=== PATIENT | female | born 1990 | race Caucasian/White ===

== ENCOUNTER 2016-11-02 00:54 | Emergency (ER) | payer SELFPAY ==
[~2016-11-02] VITALS: Ht 160 cm; Wt 69.6 kg
[~2016-11-02 00:54] MED LIST: AMOX500T PO; CORTI10A AD; HYDR-3533 PO; IBUP800T23 PO; PENI500T PO; ULTR50TA PO; Z.0.BCPILL PO
[2016-11-02] MEDS ORDERED: IBUP800T23 PO (01:04)
[2016-11-02] MEDS ORDERED: TRAM50TA PO (01:04)
[2016-11-02] MEDS ORDERED: ETON1IMP I-DERMAL (01:04)
[2016-11-02 01:05] VITALS: BP 104/66; PULSE 97; RESP 16; TEMP 97.4; O2SAT 100
[2016-11-02] MEDS ORDERED: KETOROLAC TROMETHAMINE 30 MG/ML (IVP) VIAL IV PUSH ONE (01:15)
[2016-11-02] MEDS ORDERED: ONDANSETRON HCL 4 MG/2 ML VIAL IV PUSH ONE (01:15)
[2016-11-02] MEDS ORDERED: SODIUM CHLOR 0.9% 1000 ML INJ 1,000 ML IV ONE (01:30)
[2016-11-02 01:37] LABS: AUTOMATED NEUTROPHIL # 5.4 TH/MM3 (1.8-7.7); BASOPHIL % 0.4 % (0.0-2.0); EOSINOPHIL # 0.1 TH/MM3 (0-0.4); EOSINOPHIL % 1.3 % (0.0-4.0); HEMATOCRIT 31.4 % (35.0-46.0); LYMPH % 30.8 % (9.0-44.0); LYMPHOCYTE # 2.8 TH/MM3 (1.0-4.8); MEAN CORPUSCULAR HEMOGLOBIN 21.8 PG (27.0-34.0); MEAN CORPUSCULAR HGB CONC 31.5 % (32.0-36.0); MONO % 8.5 % (0.0-8.0); PLATELET COUNT 429 TH/MM3 (150-450); RED BLOOD COUNT 4.55 MIL/MM3 (4.00-5.30); RED CELL DISTRIBUTION WIDTH 15.4 % (11.6-17.2); WHITE BLOOD COUNT 9.1 TH/MM3 (4.0-11.0)
[2016-11-02 01:42] LABS: POTASSIUM 3.6 MEQ/L (3.5-5.1)
[2016-11-02 01:45] LABS: BICARBONATE 29.2 MEQ/L (21.0-32.0)
[2016-11-02 01:47] LABS: HEMO FLAGS AUTO DIFF
--- NOTE | 2016-11-02 01:51 | PD ---
HPI Chief Complaint: Abdominal Pain Time Seen by Provider: 01:12 Travel History International Travel<30 days: No Contact w/Intl Traveler<30days: No Traveled to known affect area: No History of Present Illness HPI 26-year-old female presents to the emergency department by private transportation for one day complaint of abdominal pain. Patient states pain is related to the periumbilical area and may be due to issues with her umbilical hernia. Patient states at time of 3 years ago she developed an umbilical hernia . Patient states that since that time she's had intermittent problems with pain associated with the umbilical hernia. Patient states she is frequently seen in the emergency department for same complaint. Patient states due to insurance issues she has not been able to have the hernia repaired by surgeon. Patient recently moved here from [place] to [place] although has been seen in the [place] in the past before for the same complaint. Patient complains of nausea and an episode of vomiting earlier this evening after eating a burger at work. Patient reports chronic constipation issues and asked bowel movements approximately 2 days ago but has had flatus. Patient states that due to recurrent pain this evening she was sent home from work. Due to persistent complaint presents now for further evaluation. Patient does not note any protrusion of her umbilical hernia. Patient states that because of the pain associated with her hernia, she cannot reduce it on her own. Patient reports she has been prescribed ibuprofen and tramadol for pain associated with her umbilical hernia but it provides no relief. Patient denies . Patient's had no fever or chills. PFSH Past Medical History Narrative Medical Anemia anxiety depression and umbilical hernia GERD migraines pneumonia tubal ligation and tonsillectomy; tobacco use; nursing notes reviewed Hx Anticoagulant Therapy: No Anemia: Yes (IRON DEFICIENCY) Anxiety: Yes Depression: Yes Cardiovascular Problems: No Chemotherapy: No Cerebrovascular Accident: No Diabetes: No Diminished Hearing: No Gastrointestinal Disorders: Yes (UMBILICAL HERNIA SINCE 2012) GERD: Yes Medical other: Yes (CHICKEN POX) Respiratory: No Immunizations Current: Yes Migraines: Yes Pneumonia: Yes (AGE 8) Tetanus Vaccination: > 5 Years ?: Not LMP: 09/26/16 : 3 Para: 3 Tubal Ligation: Yes Past Surgical History Section: Yes (X 3) Tonsillectomy: Yes Social History Alcohol Use: No Tobacco Use: Yes (1/2 PPD) Substance Use: No Allergies-Medications (Allergen,Severity, Reaction): Coded Allergies: No Known Allergies (Unverified , 11/02/16) Reported Meds & Prescriptions Reported Meds & Active Scripts Active Reported Nexplanon Implant (Etonogestrel Implant) 68 Mg Imp 68 Mg I-DERMAL ONCE Ibuprofen 800 Mg Tab 800 Mg PO Q8H PRN Tramadol (Tramadol HCl) 50 Mg Tab 50 Mg PO Q6H PRN Review of Systems Except as stated in HPI: all other systems reviewed are Neg General / Constitutional: No: Fever, Chills HENT: No: Congestion Cardiovascular: No: Chest Pain or Discomfort Respiratory: No: Cough, Shortness of Breath, Wheezing Gastrointestinal: Positive: Nausea, Vomiting (x1), Abdominal Pain, No: Changes in Bowel Habits, Loss of Appetite Genitourinary: No: Flank Pain Musculoskeletal: No: Pain Skin: No Rash Neurologic: No: Weakness Psychiatric: No: Anxiety Hematologic/Lymphatic: No: Lymph Node Enlargement Physical Exam Narrative GENERAL: Well-developed well-nourished female in no acute distress no respiratory distress SKIN: Warm and dry. HEAD: Normocephalic. EYES: No scleral icterus. No injection or drainage. NECK: Supple, trachea midline. No JVD or lymphadenopathy. CARDIOVASCULAR: Regular rate and rhythm without murmurs, gallops, or rubs. RESPIRATORY: Breath sounds equal bilaterally. No accessory muscle use. GASTROINTESTINAL: Abdomen soft, periumbilical tenderness without palpable mass and no palpable hernia, nondistended. MUSCULOSKELETAL: No cyanosis, or edema. BACK: Nontender without obvious deformity. No CVA tenderness. Data Data Last Documented VS Vital Signs Date Time Temp Pulse Resp B/P Pulse Ox O2 Delivery O2 Flow Rate FiO2 11/02/16 01:05 97.4 97 16 104/66 100 Orders Complete Blood Count With Diff (11/02/16 01:12) Basic Metabolic Panel (Bmp) (11/02/16 01:12) Ed Urine Pregnancytest Poc (11/02/16 01:12) Ketorolac Inj (Toradol Inj) (11/02/16 01:15) Urinalysis - C+S If Indicated (11/02/16 01:12) Ondansetron Inj (Zofran Inj) (11/02/16 01:15) Sodium Chlor 0.9% 1000 Ml Inj (Ns 1000 M (11/02/16 01:30) Abdomen, Flat & Upright (11/02/16 ) Mandatory Outpatient Referral (11/02/16 02:39) Acetamin-Hydrocod 325-7.5 Mg ([place] 7.5 (11/02/16 02:45) Labs Laboratory Tests Test 11/02/16 11/02/16 01:21 02:15 White Blood Count 9.1 TH/MM3 Red Blood Count 4.55 MIL/MM3 Hemoglobin 9.9 GM/DL Hematocrit 31.4 % Mean Corpuscular Volume 69.0 FL Mean Corpuscular Hemoglobin 21.8 PG Mean Corpuscular Hemoglobin 31.5 % Concent Red Cell Distribution Width 15.4 % Platelet Count 429 TH/MM3 Mean Platelet Volume 7.3 FL Neutrophils (%) (Auto) 59.0 % Lymphocytes (%) (Auto) 30.8 % Monocytes (%) (Auto) 8.5 % Eosinophils (%) (Auto) 1.3 % Basophils (%) (Auto) 0.4 % Neutrophils # (Auto) 5.4 TH/MM3 Lymphocytes # (Auto) 2.8 TH/MM3 Monocytes # (Auto) 0.8 TH/MM3 Eosinophils # (Auto) 0.1 TH/MM3 Basophils # (Auto) 0.0 TH/MM3 CBC Comment AUTO DIFF Differential Comment AUTO DIFF CONFIRMED Platelet Estimate NORMAL Platelet Morphology Comment NORMAL Ovalocytes 1+ Sodium Level 142 MEQ/L Potassium Level 3.6 MEQ/L Chloride Level 107 MEQ/L Carbon Dioxide Level 29.2 MEQ/L Anion Gap 6 MEQ/L Blood Urea Nitrogen 8 MG/DL Creatinine 0.67 MG/DL Estimat Glomerular Filtration 108 ML/MIN Rate Random Glucose 91 MG/DL Calcium Level 8.9 MG/DL Urine Collection Type CLEAN CATCH Urine Color KIM Urine Turbidity SLIGHT Urine pH 6.5 Urine Specific [place] 1.030 Urine Protein TRACE mg/dL Urine Glucose (UA) NEG mg/dL Urine Ketones TRACE mg/dL Urine Occult Blood NEG Urine Nitrite NEG Urine Bilirubin NEG Urine Leukocyte Esterase NEG Urine WBC 0-2 /hpf Urine Squamous Epithelial > 8 /hpf Cells Urine Bacteria FEW /hpf Urine Mucus MANY /lpf Urine Yeast (Budding) RARE Microscopic Urinalysis Comment CULT NOT INDICATED MDM Medical Decision Making Medical Screen Exam Complete: Yes Emergency Medical Condition: Yes Medical Record Reviewed: Yes Interpretation(s) cbc: hgb 9.9 --has h/o chronic anemia metabolic panel: values wnl poc hcg: negative ua: >8 squamous epi cells cx not indicated axr: FINDINGS: Supine and upright views of the abdomen were performed. The abdominal bowel gas pattern is normal. There is some stool in the colon. No air fluid levels are seen. No definite calcifications overlying the kidneys.. The visualized lower lungs are clear. No evidence of free intraperitoneal gas. The osseous structures are unremarkable. CONCLUSION: Unremarkable examination. Ulices Monahan MD on November 02, 2016 at 2:39 Board Certified Radiologist. This report was verified electronically. Differential Diagnosis Abdominal pain, gastritis, bowel obstruction, appendicitis, ectopic , ruptured ovarian cyst, ovarian torsion, UTI, pancreatitis, umbilical hernia reducible versus strangulation versus incarcerated versus gangrenous versus bowel obstruction Narrative Course IV access obtained specimens collected and sent for resulting patient administered Toradol Patient reports minimal response to Toradol states typically she receives nor go for pain relief Specimen collected for urinalysis and POC hcg patient requests [place] abdominal flat/upright x-ray without free air or obstructive bowel gas pattern Patient administered hydrocodone 7.5/325 as a one time dose and mandatory referral was ordered; patient is stable for outpatient management Patient informed of lab results imaging results and encouraged to follow-up with general surgery. Patient is stable for outpatient management. Diagnosis Primary Impression: Abdominal pain, recurrent Additional Impressions: History of umbilical hernia Anemia Referrals: General Surgeon 2 days Patient Instructions: General Instructions Departure Forms: Tests/Procedures, Work Release Special Instructions: no work x 1 day Additional Instructions: Follow clear liquid diet 12-24 hours then advance as tolerated bland/Nicolás diet then regular diet Follow-up with general surgery regarding repair of umbilical hernia No work times one day Continue current medications as presently prescribed for pain when present Return to the emergency department for any concerns or change in condition Med/Other Pt SpecificInfo: No Change to Meds Disposition: 01 DISCHARGE HOME Condition: Stable Consuelo Pelletier MD Nov 02, 2016 01:51
[2016-11-02 01:59] LABS: OVALOCYTES 1+ (NORMAL)
[2016-11-02 02:00] LABS: PLATELET ESTIMATE SMEAR NORMAL (NORMAL); PLATELET MORPHOLOGY NORMAL (NORMAL); SCAN/DIFF AUTO DIFF CONFIRMED
[2016-11-02 02:21] LABS: BLOOD, URINE NEG (NEG); GLUCOSE,URINE NEG (NEG); KETONE, URINE TRACE mg/dL (NEG); NITRITE,URINE NEG (NEG); PH, URINE 6.5 (5.0-8.5)
[2016-11-02 02:28] LABS: METHOD OF COLLECTION CLEAN CATCH; URINE COLOR AMBER (YELLW/STRAW)
[2016-11-02 02:29] LABS: MUCUS URINE MANY /lpf (OCC)
[2016-11-02 02:30] LABS: SQUAMOUS EPITHELIAL CELL URINE > 8 /hpf (0-5)
[2016-11-02 02:31] LABS: BACTERIA, URINE FEW /hpf; WBC, URINE 0-2 /hpf (0-5)
[2016-11-02 02:32] LABS: COMMENT (UR) CULT NOT INDICATED; CULTURE IF INDICATED CULT NOT INDICATED
--- NOTE | 2016-11-02 02:41 | RADHPO ---
EXAM DATE/TIME: 11/02/2016 02:22 [facility] COMPARISON: No previous studies available for comparison. INDICATIONS : Patient states umbilical pain, no bowel movement in 5 days. MEDICAL HISTORY : None. SURGICAL HISTORY : None. ENCOUNTER: Initial ACUITY: 3 days PAIN SCORE: 8/10 LOCATION: Bilateral Abdomen FINDINGS: Supine and upright views of the abdomen were performed. The abdominal bowel gas pattern is normal. T here is some stool in the colon. No air fluid levels are seen. No definite calcifications overlying the kidneys.. The visualized lower lungs are clear. No evidence of free intraperitoneal gas. The osseous structures are unremarkable. CONCLUSION: Unremarkable examination. Ulices Monahan MD on November 02, 2016 at 2:39 Board Certified Radiologist. This report was verified electronically.
[2016-11-02] MEDS ORDERED: ACETAMINOPHEN/HYDROcodone 325 MG/7.5 MG TAB PO ONE (02:45)
[2016-11-02 03:07] VITALS: BP 110/62
== END 2016-11-02 03:11 | disposition home or self-care (01) ==
LOC: PHED 00:54
DX: R10.9 Unspecified abdominal pain (principal); D64.9 Anemia, unspecified; F41.8 Other specified anxiety disorders; F17.210 Nicotine dependence, cigarettes, uncomplicated; Z87.19 Personal history of other diseases of the digestive system
CPT/HCPCS: 74020; 80048; 81001; 84703; 85025; 96361; 96374; 96375; 99284; J1885; J2405; J7030

== ENCOUNTER 2017-02-07 17:15 | Emergency (ER) | payer SELFPAY ==
[~2017-02-07] VITALS: Ht 160 cm; Wt 68.0 kg
[~2017-02-07 17:15] MED LIST changes: -AMOX500T PO; -CORTI10A AD; +ETON1IMP I-DERMAL; -HYDR-3533 PO; -PENI500T PO; +TRAM50TA PO; -ULTR50TA PO; -Z.0.BCPILL PO
[2017-02-07 17:21] VITALS: BP 117/76; PULSE 100; RESP 16; TEMP 98.8; O2SAT 98
[2017-02-07] MEDS ORDERED: BC IMPLANT (17:34)
[2017-02-07] MEDS ORDERED: SODIUM CHLORIDE 0.9% FLUSH 10 ML FLUSH IVF PRN (17:45)
[2017-02-07] MEDS ORDERED: CLINDAMYCIN INJ 600 MG in SODIUM CHLORIDE 0.9% INJ 100 ML IV ONE (17:45)
--- NOTE | 2017-02-07 18:01 | PD ---
HPI Chief Complaint: Edema Time Seen by Provider: 17:45 Travel History International Travel<30 days: No Contact w/Intl Traveler<30days: No Traveled to known affect area: No History of Present Illness HPI 26-year-old female presents the emergency department with bruising and numbness in the left forearm for the past 4 days. Patient also admits to IV drug use at that time. Patient admits to previous history of anemia since a child. She states she is "supposed to take iron but has not been taking it." Patient has tender swollen area in the right antecubital space as well. This is somewhat warm to the touch but not erythematous. She has had feeling of fever and chills, but vital signs show no fever. Patient is more concerned with the numbness which happened immediately after utilizing IV drugs 4 days ago. She is also concerned about the bruising and the forearm. He has no significant pain otherwise. She has no known drug allergies. PFSH Past Medical History Hx Anticoagulant Therapy: No Anemia: Yes (IRON DEFICIENCY) Anxiety: Yes Depression: Yes Cardiovascular Problems: No Chemotherapy: No Cerebrovascular Accident: No Diabetes: No Diminished Hearing: No Gastrointestinal Disorders: Yes (UMBILICAL HERNIA SINCE 2012) GERD: Yes Respiratory: No Immunizations Current: Yes Migraines: Yes Pneumonia: Yes (AGE 8) Influenza Vaccination: No ?: Not LMP: LAST WEEK: IMPLANT : 3 Para: 3 Tubal Ligation: Yes Past Surgical History Section: Yes (X 3) Tonsillectomy: Yes Social History Alcohol Use: No Tobacco Use: Yes (1/2 PPD) Substance Use: No Allergies-Medications (Allergen,Severity, Reaction): Coded Allergies: No Known Allergies (Unverified , 02/07/17) Reported Meds & Prescriptions Reported Meds & Active Scripts Active Reported [Bc Implant] Review of Systems Except as stated in HPI: all other systems reviewed are Neg General / Constitutional: Positive: Fever, Chills Eyes: No: Visual changes HENT: No: Headaches Cardiovascular: No: Chest Pain or Discomfort Respiratory: No: Shortness of Breath Gastrointestinal: No: Abdominal Pain Genitourinary: No: Dysuria Musculoskeletal: No: Pain Skin: No Rash Neurologic: No: Weakness Psychiatric: No: Depression Endocrine: No: Polydipsia Hematologic/Lymphatic: No: Easy Bruising Physical Exam Narrative GENERAL: Patient appears normal distress. SKIN: Warm and dry. Patient has notable puncture wounds to both antecubital spaces of both elbows. The left forearm appears normal except for ecchymosis without swelling, tenderness, or induration. The right decubital space has an area of induration and warmth with tenderness just below the injection site.. Erythema is noted. No obvious abscess or pointing is noted. HEAD: Atraumatic. Normocephalic. EYES: Pupils equal and round. No scleral icterus. No injection or drainage. ENT: No nasal bleeding or discharge. Mucous membranes pink and moist. Pharynx is clear. NECK: Trachea midline. Supple nontender. CARDIOVASCULAR: Regular rate and rhythm. RESPIRATORY: No accessory muscle use. Clear to auscultation. Breath sounds equal bilaterally. MUSCULOSKELETAL: Extremities without clubbing, cyanosis, or edema. No obvious deformities. Both upper shows a full-strength range of motion of benzol operator strength , flexion, and extension. The patient does complain of tenderness on the right proximal forearm, but I do not feel this is muscle skeletal. NEUROLOGICAL: Awake and alert. No obvious cranial nerve deficits. Motor grossly within normal limits. Five out of 5 muscle strength in the arms and legs. Normal speech. PSYCHIATRIC: Appropriate mood and affect; insight and judgment normal. Data Data Last Documented VS Vital Signs Date Time Temp Pulse Resp B/P Pulse Ox O2 Delivery O2 Flow Rate FiO2 02/07/17 18:39 98.3 90 18 101/55 99 Room Air Orders Complete Blood Count With Diff (02/07/17 17:40) Blood Culture (02/07/17 17:40) Iv Access Insert/Monitor (02/07/17 17:40) Sodium Chloride 0.9% Flush (Ns Flush) (02/07/17 17:45) Clindamycin Inj (Cleocin Inj) (02/07/17 17:45) Comprehensive Metabolic Panel (02/07/17 17:40) Lactic Acid (02/07/17 17:40) Labs Laboratory Tests Test 02/07/17 02/07/17 18:05 18:25 White Blood Count 6.4 TH/MM3 Red Blood Count 4.43 MIL/MM3 Hemoglobin 9.6 GM/DL Hematocrit 30.6 % Mean Corpuscular Volume 69.0 FL Mean Corpuscular Hemoglobin 21.5 PG Mean Corpuscular Hemoglobin 31.2 % Concent Red Cell Distribution Width 17.8 % Platelet Count 323 TH/MM3 Mean Platelet Volume 8.4 FL Neutrophils (%) (Auto) 58.0 % Lymphocytes (%) (Auto) 30.5 % Monocytes (%) (Auto) 8.6 % Eosinophils (%) (Auto) 1.2 % Basophils (%) (Auto) 1.7 % Neutrophils # (Auto) 3.8 TH/MM3 Lymphocytes # (Auto) 1.9 TH/MM3 Monocytes # (Auto) 0.5 TH/MM3 Eosinophils # (Auto) 0.1 TH/MM3 Basophils # (Auto) 0.1 TH/MM3 CBC Comment AUTO DIFF Sodium Level 143 MEQ/L Potassium Level 3.9 MEQ/L Chloride Level 108 MEQ/L Carbon Dioxide Level 26.8 MEQ/L Anion Gap 8 MEQ/L Blood Urea Nitrogen 6 MG/DL Creatinine 0.59 MG/DL Estimat Glomerular Filtration 125 ML/MIN Rate Random Glucose 95 MG/DL Calcium Level 8.8 MG/DL Total Bilirubin 0.5 MG/DL Aspartate Amino Transf 17 U/L (AST/SGOT) Alanine Aminotransferase 15 U/L (ALT/SGPT) Alkaline Phosphatase 52 U/L Total Protein 7.4 GM/DL Albumin 3.4 GM/DL Lactic Acid Level 0.7 mmol/L MDM Medical Decision Making Medical Screen Exam Complete: Yes Emergency Medical Condition: Yes Differential Diagnosis IV drug use. Cellulitis. Phlebitis. Ecchymosis. Neuralgia secondary to IV drug use. Possible early sepsis. History of anemia. Question thrombocytopenia. Narrative Course Patient is medically stable at time of exam. Labs ordered including CBC, CMP, lactic acid, and blood cultures 2. Patient is given 600 mg clindamycin IV. CBC shows no significant leukocytosis. Hemoglobin is 9.6. Hematocrit is 30.6. MCV is 69.0, MCH is 21.5 Normal at 323. CMP is unremarkable. Lactic acid 0.7. Patient is going to be sent home with Bactrim DS twice a day 7 days. Patient given ibuprofen 600 mg 4 times a day #40. Patient referred primary care physician for follow-up. Patient also referred to Corbin Rogers. Patient can return if symptoms do not improve or worsen as discussed. Diagnosis Primary Impression: Cellulitis Qualified Code: L03.119 - Cellulitis of upper extremity, unspecified laterality Additional Impression: IV drug user Referrals: [facility] Patient Instructions: General Instructions Additional Instructions: Labs ordered including CBC, CMP, lactic acid, and blood cultures 2. Patient is given 600 mg clindamycin IV. CBC shows no significant leukocytosis. Hemoglobin is 9.6. Hematocrit is 30.6. MCV is 69.0, MCH is 21.5 Normal at 323. CMP is unremarkable. Lactic acid 0.7. Patient is going to be sent home with Bactrim DS twice a day 7 days. Patient given ibuprofen 600 mg 4 times a day #40. Patient referred primary care physician for follow-up. Patient also referred to Corbin Rogers. Patient can return if symptoms do not improve or worsen as discussed. Med/Other Pt SpecificInfo: Prescription(s) given Scripts Ibuprofen 600 Mg [id number] Mg PO Q6H PRN (Pain/Inflammation) #40 TAB Prov:Armida Moses DO 02/07/17 Sulfamethoxazole-Trimethoprim (Bactrim DS)800-160 Mg Tab1 Tab PO BID #14 TAB Prov:Armida Moses DO 02/07/17 Disposition: 01 DISCHARGE HOME Condition: Stable Horace Gerardo February 07, 2017 18:01
[2017-02-07 18:18] LABS: AUTOMATED NEUTROPHIL # 3.8 TH/MM3 (1.8-7.7); BASOPHIL # 0.1 TH/MM3 (0-0.2); BASOPHIL % 1.7 % (0.0-2.0); EOSINOPHIL # 0.1 TH/MM3 (0-0.4); EOSINOPHIL % 1.2 % (0.0-4.0); HEMATOCRIT 30.6 % (35.0-46.0); LYMPH % 30.5 % (9.0-44.0); LYMPHOCYTE # 1.9 TH/MM3 (1.0-4.8); MEAN CORPUSCULAR HEMOGLOBIN 21.5 PG (27.0-34.0); MEAN CORPUSCULAR HGB CONC 31.2 % (32.0-36.0); MONO % 8.6 % (0.0-8.0); PLATELET COUNT 323 TH/MM3 (150-450); RED BLOOD COUNT 4.43 MIL/MM3 (4.00-5.30); RED CELL DISTRIBUTION WIDTH 17.8 % (11.6-17.2); WHITE BLOOD COUNT 6.4 TH/MM3 (4.0-11.0)
[2017-02-07 18:26] LABS: HEMO FLAGS AUTO DIFF
[2017-02-07 18:31] LABS: CHLORIDE 108 MEQ/L (98-107); POTASSIUM 3.9 MEQ/L (3.5-5.1); SODIUM (NA) 143 MEQ/L (136-145)
[2017-02-07 18:34] LABS: ANION GAP 8 MEQ/L (5-15); BICARBONATE 26.8 MEQ/L (21.0-32.0)
[2017-02-07 18:35] LABS: BLOOD UREA NITROGEN 6 MG/DL (7-18)
[2017-02-07 18:37] LABS: ALT (GPT) 15 U/L (10-53)
[2017-02-07 18:38] LABS: AST (GOT) 17 U/L (15-37); GLOMERULAR FILTRATION RATE 125 ML/MIN (>89)
[2017-02-07 18:39] VITALS: BP 101/55; PULSE 90; RESP 18; TEMP 98.3; O2SAT 99
[2017-02-07 18:39] LABS: TOTAL BILIRUBIN ADULT 0.5 MG/DL (0.2-1.0)
[2017-02-07 18:41] LABS: ALKALINE PHOSPHATASE 52 U/L (45-117)
[2017-02-07] MEDS ORDERED: BACT800T5 PO (19:06)
[2017-02-07] MEDS ORDERED: IBUP-232 PO (19:06)
[2017-02-07 19:19] LABS: OVALOCYTES 2+ (NORMAL); PLATELET ESTIMATE SMEAR NORMAL (NORMAL); PLATELET MORPHOLOGY NORMAL (NORMAL); SCAN/DIFF AUTO DIFF CONFIRMED
== END 2017-02-07 19:40 | disposition home or self-care (01) ==
LOC: PHEFT 17:15
DX: L03.119 Cellulitis of unspecified part of limb (principal); D50.9 Iron deficiency anemia, unspecified; F17.210 Nicotine dependence, cigarettes, uncomplicated; F19.20 Other psychoactive substance dependence, uncomplicated
CPT/HCPCS: 80053; 83605; 85025; 87040; 96365

== ENCOUNTER 2017-07-29 01:39 | Emergency (ER) | payer SELFPAY ==
[~2017-07-29] VITALS: Ht 160 cm; Wt 53.0 kg
[~2017-07-29 01:39] MED LIST changes: +BACT800T5 PO; +BC IMPLANT; -ETON1IMP I-DERMAL; +IBUP-232 PO; -IBUP800T23 PO; -TRAM50TA PO
[2017-07-29 01:45] VITALS: BP 113/75; PULSE 86; RESP 16; TEMP 98.8; O2SAT 99
[2017-07-29] MEDS ORDERED: FERR15DR9 PO (01:52)
[2017-07-29] MEDS ORDERED: OFFICE MEDICATION (01:52)
[2017-07-29] MEDS ORDERED: KETOROLAC TROMETHAMINE 30 MG/ML (IVP) VIAL IV PUSH ONE (02:00)
[2017-07-29] MEDS ORDERED: SODIUM CHLOR 0.9% 1000 ML INJ 1,000 ML IV ONE (02:00)
[2017-07-29 02:21] LABS: AUTOMATED NEUTROPHIL # 5.5 TH/MM3 (1.8-7.7); BASOPHIL # 0.1 TH/MM3 (0-0.2); BASOPHIL % 1.1 % (0.0-2.0); EOSINOPHIL # 0.1 TH/MM3 (0-0.4); EOSINOPHIL % 1.2 % (0.0-4.0); HEMATOCRIT 38.8 % (35.0-46.0); HEMOGLOBIN 12.5 GM/DL (11.6-15.3); LYMPH % 39.3 % (9.0-44.0); LYMPHOCYTE # 4.2 TH/MM3 (1.0-4.8); MEAN CELL VOLUME 74.1 FL (80.0-100.0); MEAN CORPUSCULAR HEMOGLOBIN 23.8 PG (27.0-34.0); MEAN CORPUSCULAR HGB CONC 32.1 % (32.0-36.0); MEAN PLATELET VOLUME 8.3 FL (7.0-11.0); MONO % 7.2 % (0.0-8.0); MONOCYTE # 0.8 TH/MM3 (0-0.9); NEUT % 51.2 % (16.0-70.0); PLATELET COUNT 427 TH/MM3 (150-450); RED BLOOD COUNT 5.24 MIL/MM3 (4.00-5.30); RED CELL DISTRIBUTION WIDTH 17.7 % (11.6-17.2); WHITE BLOOD COUNT 10.7 TH/MM3 (4.0-11.0)
[2017-07-29 02:35] LABS: BACTERIA, URINE OCC /hpf; BILIRUBIN, URINE NEG (NEG); BLOOD, URINE NEG (NEG); GLUCOSE,URINE NEG (NEG); KETONE, URINE NEG (NEG); MUCUS URINE MANY /lpf (OCC); NITRITE,URINE NEG (NEG); SQUAMOUS EPITHELIAL CELL URINE <1 /hpf (0-5); URINE COLOR YELLOW (YELLW/STRAW); URINE LEUKOCYTE ESTERASE MOD (NEG)
[2017-07-29 02:38] LABS: ALKALINE PHOSPHATASE 56 U/L (45-117); TOTAL BILIRUBIN ADULT 1.4 MG/DL (0.2-1.0); TOTAL PROTEIN 8.4 GM/DL (6.4-8.2)
[2017-07-29 02:59] LABS: ALBUMIN 4.4 GM/DL (3.4-5.0); ALT (GPT) 12 U/L (10-53); AST (GOT) 12 U/L (15-37); BLOOD UREA NITROGEN 10 MG/DL (7-18); CALCIUM 9.1 MG/DL (8.5-10.1); CHLORIDE 106 MEQ/L (98-107); CREATININE 0.93 MG/DL (0.50-1.00); GLOMERULAR FILTRATION RATE 74 ML/MIN (>89); GLUCOSE,RANDOM 96 MG/DL (74-106); SODIUM (NA) 138 MEQ/L (136-145)
[2017-07-29 03:00] VITALS: BP 103/76; PULSE 68; RESP 18; O2SAT 98
[2017-07-29] MEDS ORDERED: BACT800T5 PO (03:16)
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
--- NOTE | 2017-07-29 17:13 | EKG ---
Date Performed: 07/29/2017 Time Performed: 01:50:38 PTAGE: 26 years EKG: Sinus rhythm WITH MARKED SINUS ARRHYTHMIA ARM LEADS REVERSED BORDERLINE ECG NO PREVIOUS TRACING DOCTOR: Phill Aguilar Interpretating Date/Time 07/29/2017 17:11:39
== END 2017-07-29 09:00 | disposition home or self-care (01) ==
LOC: NEPE 01:39
DX: N30.00 Acute cystitis without hematuria (principal); B95.2 Enterococcus as the cause of diseases classified elsewhere; T76.21XA Adult sexual abuse, suspected, initial encounter; F17.210 Nicotine dependence, cigarettes, uncomplicated; F14.90 Cocaine use, unspecified, uncomplicated; D50.9 Iron deficiency anemia, unspecified; I49.8 Other specified cardiac arrhythmias; Z79.899 Other long term (current) drug therapy
CPT/HCPCS: 80053; 80307; 81001; 82550; 84703; 85025; 87077; 87086; 87186; 93005; 96361; 96374; 99284; J1885; J7030